=== PATIENT | male | born 1965 | race American Indian/Alaskan Native ===

== ENCOUNTER 2017-10-02 18:57 | Emergency (ER) | payer SELFPAY ==
[2017-10-02] MEDS ORDERED: CATAPRES ONE (20:14)
[2017-10-02] MEDS ORDERED: CATAPRES PO ONE (20:24)
[2017-10-02 21:20] LABS: BUN/Creatinine Ratio 21; Blood Urea Nitrogen 19 mg/dL (9-20); Hemolysis Index 12
[2017-10-02 21:34] LABS: Basophils % (Auto) 0.6 % (0.0-1.8); Eosinophils # (Auto) 0.2 K/mm3 (0.0-0.4); Eosinophils % (Auto) 3.2 % (0.0-4.3); Hemoglobin 12.8 gm/dl (11.8-15.2); Lymphocytes # (Auto) 2.5 K/mm3 (1.2-5.4); Mean Corpuscular HGB Conc 33 % (32-34); Mean Corpuscular Hemoglobin 32 pg (28-32); Mean Corpuscular Volume 96 fl (84-94); Monocytes # (Auto) 0.7 K/mm3 (0.0-0.8); Monocytes % (Auto) 9.2 % (0.0-7.3); Platelet Count 329 K/mm3 (140-440); Red Blood Count 4.05 M/mm3 (3.65-5.03); Red Cell Distribution Width 13.2 % (13.2-15.2)
--- NOTE | 2017-10-02 21:41 | Emergency Department Report ---
ED General Adult HPI - General Chief complaint: High BP Stated complaint: NUMBNESS IN MANDAEISM Time Seen by Provider: 10/02/17 21:31 Source: patient, RN notes reviewed Mode of arrival: Ambulatory Limitations: No Limitations - History of Present Illness Initial comments: This is a 52-year-old male. The patient is previously unknown to this provider. He does not have a primary care doctor. He does not have chronic medical conditions that he is aware of. He reports that he has not seen a primary care doctor in years. He denies a family history of hemorrhagic stroke and aneurysms. Patient presents to the ER with a complaint of resolved bilateral temporal pain. There is no trauma. It started 2 nights ago. It was not sudden or thunderclap in nature. It did not reach maximal intensity within an hour. There is no neck pain. There is no neck stiffness. The pain was strongest approximately 24 hours after onset. Patient indicates the bitemporal discomfort was waxing and waning and worse at night. Patient reports that he was given clonidine prior to my evaluation for incidental elevated blood pressure, and he reports his symptoms have since resolved. He has no complaints at this time. -: Gradual Location: head Radiation: non-radiation Consistency: now resolved Improves with: medication Worsens with: none Associated Symptoms: denies: confusion, chest pain, cough, diaphoresis, fever/ chills, loss of appetite, malaise, nausea/vomiting, rash, seizure, shortness of breath, syncope, weakness - Related Data Previous Rx's Medication Instructions Recorded Last Taken Type Amlodipine Besylate [Norvasc] 5 mg PO QDAY #30 tablet 10/02/17 Unknown Rx Allergies Allergy/AdvReac Type Severity Reaction Status Date / Time No Known Allergies Allergy Unverified 10/02/17 20:22 ED Review of Systems ROS: Stated complaint: NUMBNESS IN MANDAEISM Other details as noted in HPI ED Past Medical Hx - Past Medical History Previous Medical History?: Yes Hx Hypertension: Yes - Surgical History Past Surgical History?: No - Social History Smoking Status: Never Smoker Substance Use Type: None - Medications Home Medications: Home Medications Medication Instructions Recorded Confirmed Last Taken Type Amlodipine Besylate [Norvasc] 5 mg PO QDAY #30 tablet 10/02/17 Unknown Rx ED Physical Exam - General Limitations: No Limitations General appearance: alert, in no apparent distress - Head Head exam: Present: atraumatic, normocephalic, other (there is no temporal tenderness. There is no pulsatile mass noted) - Eye Eye exam: Present: normal appearance, PERRL, EOMI. Absent: nystagmus - ENT ENT exam: Present: normal exam, normal orophraynx, mucous membranes moist, normal external ear exam - Neck Neck exam: Present: normal inspection, full ROM - Respiratory Respiratory exam: Present: normal lung sounds bilaterally. Absent: respiratory distress, chest wall tenderness - Cardiovascular Cardiovascular Exam: Present: regular rate, normal rhythm, normal heart sounds. Absent: systolic murmur, diastolic murmur, rubs, gallop - GI/Abdominal GI/Abdominal exam: Present: soft, normal bowel sounds. Absent: distended, tenderness, guarding, rebound, rigid, pulsatile mass - Rectal Rectal exam: Present: deferred - Extremities Exam Extremities exam: Present: normal inspection, full ROM, normal capillary refill. Absent: pedal edema, joint swelling, calf tenderness - Back Exam Back exam: Present: normal inspection, full ROM. Absent: tenderness, CVA tenderness (R), paraspinal tenderness, vertebral tenderness - Neurological Exam Neurological exam: Present: alert, oriented X3, CN II-XII intact, normal gait, other (Extraocular movements intact. Tongue midline. No facial droop. Facial sensation intact to light touch in the V1, V2, V3 distribution bilaterally. 5 and 5 strength in 4 extremities.. Sensation is intact to light touch in 4 extremities.). Absent: motor sensory deficit - Psychiatric Psychiatric exam: Present: normal affect, normal mood - Skin Skin exam: Present: warm, dry, intact, normal color. Absent: rash ED Course Vital Signs 10/02/17 10/02/17 10/02/17 20:18 20:26 21:47 Temperature 98.2 F Pulse Rate 82 82 Respiratory 20 Rate Blood Pressure 226/127 226/127 195/110 Blood Pressure [Left] O2 Sat by Pulse 96 97 Oximetry 10/02/17 10/02/17 10/02/17 21:53 22:00 22:01 Temperature Pulse Rate 78 69 Respiratory 16 20 16 Rate Blood Pressure 195/110 Blood Pressure 195/110 [Left] O2 Sat by Pulse 96 99 98 Oximetry 10/02/17 10/02/17 10/02/17 22:15 22:30 22:45 Temperature Pulse Rate 73 69 68 Respiratory 19 13 13 Rate Blood Pressure 183/114 180/111 185/114 Blood Pressure [Left] O2 Sat by Pulse 98 96 98 Oximetry 10/02/17 10/02/17 23:00 23:15 Temperature Pulse Rate 70 74 Respiratory 13 17 Rate Blood Pressure 172/114 172/114 Blood Pressure [Left] O2 Sat by Pulse 98 96 Oximetry ED Medical Decision Making - Lab Data Result diagrams: 10/02/17 20:52 10/02/17 20:52 Vital Signs 10/02/17 10/02/17 10/02/17 20:18 20:26 21:53 Temperature 98.2 F Pulse Rate 82 82 78 Respiratory 20 16 Rate Blood Pressure 226/127 226/127 Blood Pressure 195/110 [Left] O2 Sat by Pulse 96 96 Oximetry Lab Results 10/02/17 10/02/17 Range/Units 20:52 20:52 WBC 7.1 (4.5-11.0) K/mm3 RBC 4.05 (3.65-5.03) M/mm3 Hgb 12.8 (11.8-15.2) gm/dl Hct 39.0 (35.5-45.6) % MCV 96 H (84-94) fl MCH 32 (28-32) pg MCHC 33 (32-34) % RDW 13.2 (13.2-15.2) % Plt Count 329 (140-440) K/mm3 Lymph % (Auto) 35.0 (13.4-35.0) % Phelps % (Auto) 9.2 H (0.0-7.3) % Eos % (Auto) 3.2 (0.0-4.3) % Baso % (Auto) 0.6 (0.0-1.8) % Lymph # 2.5 (1.2-5.4) K/mm3 Phelps # 0.7 (0.0-0.8) K/mm3 Eos # 0.2 (0.0-0.4) K/mm3 Baso # 0.0 (0.0-0.1) K/mm3 Seg Neutrophils % 52.0 (40.0-70.0) % Seg Neutrophils # 3.7 (1.8-7.7) K/mm3 Sodium 143 (137-145) mmol/L Potassium 3.8 (3.6-5.0) mmol/L Chloride 103.6 (98-107) mmol/L Carbon Dioxide 25 (22-30) mmol/L Anion Gap 18 mmol/L BUN 19 (9-20) mg/dL Creatinine 0.9 (0.8-1.5) mg/dL Estimated GFR > 60 ml/min BUN/Creatinine Ratio 21 % Glucose 95 (75-100) mg/dL Calcium 9.0 (8.4-10.2) mg/dL - EKG Data -: EKG Interpreted by Me EKG shows normal: sinus rhythm - EKG Data When compared to previous EKG there are: previous EKG unavailable 10/02/17 21:58 Normal sinus, 79 bpm, left axis deviation, left ventricular hypertrophy, biphasic T waves in the lateral leads, QTc within normal limits, MT interval within normal limits, not having any symptoms, not morphologically consistent ST elevation myocardial infarction. - Radiology Data Radiology results: report reviewed, image reviewed Noncontrast CT scan of the brain, negative for acute disease - Medical Decision Making Differential diagnosis, including but not limited to: Migraine headache, tension headache, cluster headache, incidental hypertension, intracranial hemorrhage Assessment and plan: 52-year-old male with complaints of resolved bitemporal pain. History is not consistent with subarachnoid hemorrhage. He is also incidentally found to have elevated blood pressure which improved with clonidine. As for the [employer] clinical policy on hypertension that is not symptomatically, the patient we'll not benefit from acute or traumatic decrease in his blood pressure. He will be started on Norvasc, and he is instructed to closely follow up with an outpatient primary care doctor for better control of his hypertension. He was observed in the ER for a few hours without difficulty or complication and feels improved to follow up. Critical care attestation.: If time is entered above; I have spent that time in minutes in the direct care of this critically ill patient, excluding procedure time. ED Disposition Clinical Impression: Elevated blood pressure reading Disposition: -01 TO HOME OR SELFCARE Is pt being admited?: No Does the pt Need Aspirin: No Condition: Good Instructions: Hypertension (ED) Additional Instructions: Follow-up with the primary care doctor within the next 7-10 days to initiate outpatient primary care and have blood pressure rechecked. Take the blood pressure medication as directed. Please note that blood pressure was elevated. This should be followed up and treated by your primary care doctor as recommended. Long-term complications of hypertension and elevated blood pressure includes stroke, heart attack, disability, , paralysis, loss of quality of life. Return to the ER right away with new pain, worsened pain, migration of pain, confusion, intractable nausea or vomiting, inability to tolerate liquid feeds, new, worsening or different symptoms. Prescriptions: Amlodipine Besylate [Norvasc] 5 mg PO QDAY #30 tablet Referrals: LIBRA HUNT MD [Primary Care Provider] - 3-5 Days WILNER WHITFIELD MD [Staff Physician] - 3-5 Days [facility] [Provider Group] - 3-5 Days
--- NOTE | 2017-10-02 22:27 | Cat Scan Report ---
FINAL REPORT EXAM: CT HEAD/BRAIN WO CON HISTORY: headache and hypertension TECHNIQUE: CT head without contrast PRIORS: None. FINDINGS: No acute intra-axial or extra-axial hemorrhage is identified. There is no evidence of midline shift or mass effect. The ventricles and sulci are within normal limits. Wolff-white matter differentiation is intact. No acute parenchymal abnormalities seen. Bony calvarium is grossly intact. Visualized portions of the mastoids and paranasal sinuses are unremarkable. IMPRESSION: Negative CT head
[2017-10-02 23:17] VITALS: BP 172/114
== END 2017-10-02 23:27 | disposition home or self-care (01) ==
LOC: ED 18:57
DX: I10 Essential (primary) hypertension (principal)
CPT/HCPCS: 36415; 70450; 80048; 85025; 93005; 93010; 99284